=== PATIENT | female | born 1940 | race Caucasian/White ===

== ENCOUNTER 2018-02-17 08:33 | Emergency (ER) | payer MEDICARE, OTHER ==
[~2018-02-17] VITALS: Ht 170.2 cm; Wt 64.0 kg
[2018-02-17 08:46] VITALS: BP 142/79
[2018-02-17] MEDS ORDERED: GLYC1TAB11 PO (09:20)
[2018-02-17] MEDS ORDERED: ZOLP5TAB2 PO (09:20)
== END 2018-02-17 09:43 | disposition home or self-care (01) ==
LOC: ER 08:34
DX: D17.0 Benign lipomatous neoplasm of skin and subcutaneous tissue of head, face and neck (principal); Z87.891 Personal history of nicotine dependence; Z88.2 Allergy status to sulfonamides; Z79.899 Other long term (current) drug therapy
CPT/HCPCS: 99283